=== PATIENT | male | born 1995 | race Caucasian/White ===

== ENCOUNTER 2017-09-24 05:30 | Emergency (ER) | payer OTHER ==
[~2017-09-24] VITALS: Ht 172.7 cm; Wt 99.8 kg
[~2017-09-24 05:30] MED LIST: ALLEGRA60 MG; CONCERTA54 MG; HYDROCODON-ACE1 EAC7 PO; IBUPROFEN 200200 M1 PO; NOHOMEMEDICATIONS; ONDANSETRON HCL4 M2 PO; ZOFRAN ODT4 MG SUBLING
[2017-09-24] MEDS ORDERED: ZOLOFT25 MG (05:43)
[2017-09-24] MEDS ORDERED: NORCO 5-325 TA1 EACH PO (06:38)
[2017-09-24 06:55] VITALS: BP 136/82
== END 2017-09-24 06:55 | disposition home or self-care (01) ==
LOC: M.ERS 05:30
DX: M54.5 Low back pain (principal); J45.909 Unspecified asthma, uncomplicated; F90.9 Attention-deficit hyperactivity disorder, unspecified type; F17.210 Nicotine dependence, cigarettes, uncomplicated; Z88.1 Allergy status to other antibiotic agents

== ENCOUNTER 2020-06-14 00:14 | Emergency (ER) | payer OTHER ==
[~2020-06-14] VITALS: Ht 172.7 cm; Wt 104.3 kg
--- NOTE | ~2020-06-14 | EMS ---
[place] [address] EMS Patient Care Report Name: DASIA VERDE Room: [facility]..#: [id number] Admission: Attend Phys: Discharge: Date of : [birth year] Report #: [id number] THIS REPORT FOR: //name// Report Transmitted: 06/14/2020 00:18 EMS Care Summary [facility] Incident [id number] @ 06/13/2020 23:32 Incident Location [address] [place] [address] Patient DASIA VERDE Male, 24 Years 1995 Patient Address [address] [place] [address] Patient History Asthma,None Reported, Patient Allergies Sulfa, Patient Medications None Reported, Chief Complaint Chest Pain Disposition Transported No Lights/[place] Dispatch Reason Sick Person Transported To [facility] Narrative Med 1 and Engine 1 were dispatched for a [age] year-old male c/o chest pain that radiated to his left shoulder. Upon arrival, [place] [address] EMS Patient Care Report Name: DASIA VERDE Room: [facility] ..#: [id number] Admission: Attend Phys: Discharge: Date of : [birth year] Report #: [id number] the upper floor apartment and met us at the ambulance. Patient reported that he has had a headache for the last several days he had been exposed to covid but today is day 14 of his quarantine. Patient was playing video games and began to feel a slight pressure in his chest that radiated to his arm. Patient was AOx3, strong, regular bilateral radial pulse. He was pain free upon our arrival. Patient was assisted to the stretcher and secured to the stretcher inside the ambulance. Patient's vitals were obtained, patient was placed on the conveyor monitor and a 12 lead was obtained. It shown NSR. Patient did report he had drank an energy drink earlier in the day. Patient also reported that he has had a headache for the last several days. Med 1 went en route to [facility]. Patient was monitored through out transport and patient denied any chest pain in the ambulance. Saline lock was established in the patient's left AC with a 20GA IV catheter. Hospital report was given via radio with no questions or orders requested or received. Med 1 arrived at the hospital. Patient was moved into the ER via stretcher without incident to room 11. Patient care was transferred to ER staff. Med 1 returned back into service. [id number] KShook Initial Vitals @00:06P: 82, @23:50P: 259,SpO2: 99, @23:56P: 87, @23:46P: 94,SpO2: 100, @23:46 @23:51P: 90,SpO2: 98, @23:54P: 97,R: 18,BP: 120/91,GCS: 15,Revised Trauma: 12, @23:50P: 82,R: 18,BP: 120/76,Pain: 0/10,GCS: 15,Glucose: 100,SpO2: 100,Revised Trauma: 12, @23:43P: 95,R: 18,Pain: 0/10,GCS: 15,SpO2: 100, Assessments @23:39MENTAL:No Abnormalities,SKIN:No Abnormalities,HEENT:Head/Face: No Abnormalities,Eyes: No Abnormalities,Neck/Airway: No Abnormalities,LUNG SOUNDS:ABDOMEN:PELVIS//GI:EXTREMITIES:Left Arm: No Abnormalities,Right Arm: No Abnormalities,Left Leg: No Abnormalities,Right Leg: No Abnormalities,PULSE:NEURO:No Abnormalities, Impression Chest Pain / [place] [address] EMS Patient Care Report Name: DASIA VERDE Room: [facility].R.#: [id number] Admission: Attend Phys: Discharge: Date of : [birth year] Report #: [id number] Procedures @23:4612-Lead ECG@23:49Normal Saline (.9% NaCl) 10cc (20 ga) Site: Antecubital-LeftResponse: UnchangedSucceeded Timeline 23:32,Call Received 23:32,Dispatched 23:34,En Route 23:36,On Scene 23:37,At Patient 23:38,Depart Scene 23:43,BP: / M,PULSE: 95,RR: 18 R,SPO2: 100 Ox,ETCO2: ,BG: ,PAIN: 0,GCS: 15, 23:46,12-Lead ECG, 23:46,BP: / M,PULSE: ,RR: R,SPO2: Ox,ETCO2: ,BG: ,PAIN: ,GCS: , 23:46,BP: / M,PULSE: 94,RR: R,SPO2: 100 Ox,ETCO2: ,BG: ,PAIN: ,GCS: , 23:49,Normal Saline (.9% NaCl) 10cc 20 ga Site: Antecubital-Left,Response: UnchangedSucceeded, 23:50,BP: 120/76 M,PULSE: 82,RR: 18 R,SPO2: 100 Ox,ETCO2: ,B,PAIN: 0,GCS: 15, 23:50,BP: / M,PULSE: 259,RR: R,SPO2: 99 Ox,ETCO2: ,BG: ,PAIN: ,GCS: , 23:51,BP: / M,PULSE: 90,RR: R,SPO2: 98 Ox,ETCO2: ,BG: ,PAIN: ,GCS: , 23:54,BP: 120/91 M,PULSE: 97,RR: 18 R,SPO2: Ox,ETCO2: ,BG: ,PAIN: ,GCS: 15, 23:56,BP: / M,PULSE: 87,RR: R,SPO2: Ox,ETCO2: ,BG: ,PAIN: ,GCS: , 00:06,BP: / M,PULSE: 82,RR: R,SPO2: Ox,ETCO2: ,BG: ,PAIN: ,GCS: , 00:08,At Destination 00:44,Call Closed 00:44,In District Disclaimer v1.1 Copyright 2020 [employer] This EMS Care Summary contains data elements from the applicable legal record (which may be displayed differently). It is designed to provide pertinent information for the following purposes: continuity of care, clinical quality, and state data reporting. The complete legal record is available to ED staff and administrators of the receiving hospital in [employer]'s Patient Tracker. All data is provided "as is."
[~2020-06-14 00:14] MED LIST changes: +NORCO 5-325 TA1 EACH PO; +ZOLOFT25 MG
[2020-06-14 01:56] LABS: ABSOLUTE BASOPHILS 0.1 thou/uL (0.0-0.2); ABSOLUTE EOSINOPHILS 0.2 thou/uL (0.0-0.7); ABSOLUTE LYMPHOCYTES 1.8 thou/uL (0.8-5.3); ABSOLUTE MONOCYTES 0.7 thou/uL (0.0-1.2); ABSOLUTE NEUTROPHILS 7.1 thou/uL (1.6-8.1); BASOPHILS 0.6 %; EOSINOPHILS 2.5 %; HEMATOCRIT 40.1 % (42.0-52.0); HEMOGLOBIN 13.8 gm/dL (14.0-18.0); MCH 29.3 pg (26.0-34.0); MCHC 34.4 g/dL (28.0-37.0); MCV 85.1 fL (80.0-100.0); MONOCYTES 6.7 %; MPV 8.3 fl. (7.2-11.1); NUCLEATED RBCS 0 /100WBC; PLATELET COUNT* 211 thou/uL (150-400); POLYS 72.2 %; RBC 4.72 mil/uL (4.50-6.00); RDW-CV 13.7 % (10.5-14.5); WBC 9.8 thou/uL (4.0-11.0)
[2020-06-14 02:01] LABS: CALCIUM 8.8 mg/dL (8.5-10.1); POTASSIUM 3.9 mmol/L (3.5-5.1)
[2020-06-14 02:06] LABS: ALBUMIN 3.6 g/dL (3.4-5.0); TOTAL BILIRUBIN 0.5 mg/dL (<0.1-1.0); TOTAL PROTEIN 7.1 g/dL (6.4-8.2)
[2020-06-14 03:35] VITALS: BP 106/59
--- NOTE | 2020-06-14 13:56 | EKG ---
[place] [address] ELECTROCARDIOGRAM REPORT Name: DASIA VERDE Room: [facility]#: [id number] Admission: 06/14/20 Attend Phys: Discharge: 06/14/20 Date of : [birth year] Date of Service: 06/14/20 0014 Report #: [id number] THIS REPORT FOR: //name// [facility] ED Test Date: 2020-06-14 Test Time: 00:14:03 Pat Name: DASIA VERDE Department: Room: Gender: [employer] Pianist: [place] : 1995 Requested By: Geetha Saucedo Order Number: [id number] MD: Reji Khan Measurements Intervals [place] Rate: 77 P: 34 MI: 152 QRS: 23 QRSD: 108 T: 26 QT: 401 QTc: 454 Interpretive Statements Sinus rhythm No previous ECG available for comparison Electronically Signed On 06-14-2020 13:56:15 LICENSE ISSUER by Reji Khan [email or web address] <ELECTRONICALLY SIGNED> By: Reji Khan MD, [facility] 06/14/20 1356 D: 01/13 001 Reji Khan MD, FACC /EPI
== END 2020-06-14 03:35 | disposition home or self-care (01) ==
LOC: M.ERS 00:14
PROVIDERS: Personal Emergency Response Attendant
DX: R07.89 Other chest pain (principal); J45.909 Unspecified asthma, uncomplicated; F17.210 Nicotine dependence, cigarettes, uncomplicated; Z90.89 Acquired absence of other organs; Z88.2 Allergy status to sulfonamides; Z20.828 Contact with and (suspected) exposure to other viral communicable diseases